=== PATIENT | male | born 1995 | race Two or more races ===

== ENCOUNTER 2018-08-05 20:43 | Emergency (ER) | payer OTHER ==
[~2018-08-05] VITALS: Ht 188 cm; Wt 86.2 kg
--- NOTE | 2018-08-05 22:11 | NUR ---
INTERMITTENT LT SIDED CP X2 WKS, WORSE WHEN LYING DOWN, W/ INTERMITTENT LT ARM PAIN. DESCRIBES MORE LIKE PRESSURE IN THE CHEST AND NUMBNESS/TINGLING IN THE ARM. "IT'S A WEIRD FEELING". DENIES INJURY OR RECENT EXACERABTION. DENIES SOB. HOOKED TO MONITOR. READY FOR EVAL.
--- NOTE | 2018-08-05 23:08 | NUR ---
Patient discharged to home in stable condition. Written and verbal after care instructions given. Patient verbalizes understanding of instruction.
[2018-08-05 23:09] VITALS: BP 127/76
== END 2018-08-05 23:10 | disposition home or self-care (01) ==
LOC: ER 20:51
DX: R07.89 Other chest pain (principal); F17.200 Nicotine dependence, unspecified, uncomplicated; F12.10 Cannabis abuse, uncomplicated; Z91.013 Allergy to seafood
CPT/HCPCS: 71045; 93005; 99283; A4606

== ENCOUNTER 2018-11-13 19:56 | Emergency (ER) ==
[~2018-11-13] VITALS: Ht 188 cm; Wt 86.2 kg
[2018-11-13 19:56] VITALS: BP 135/84
--- NOTE | 2018-11-13 20:48 | NUR ---
TO ER BED 7,NO APPARENT CHANGE IN CONDITION
== END 2018-11-13 21:22 | disposition home or self-care (01) ==
LOC: ER 19:58
DX: J02.9 Acute pharyngitis, unspecified (principal); I88.9 Nonspecific lymphadenitis, unspecified; F12.90 Cannabis use, unspecified, uncomplicated; Z91.013 Allergy to seafood

== ENCOUNTER 2019-03-04 14:21 | Inpatient (IN) | payer OTHER ==
[~2019-03-04] VITALS: Ht 188 cm; Wt 83.0 kg
--- NOTE | 2019-03-04 15:00 | NUR ---
PT PRESENTS TO ER C/O RLQ PAIN SINCE LAST NIGHT, NO APPETITE BUT NO NAUSEA AT THIS TIME. RESP EVEN UNLABORED. PT REPORTS PAIN IS SO INTENSE HE IS STRUGGLING TO SIT UPRIGHT. DENIES DYSURIA. DENIES N/V/D. IN ER BED 11.
[2019-03-04] MEDS ORDERED: ONDANSETRON HCL/PF 4 MG/2 ML VIAL IVP ONE (15:30)
[2019-03-04] MEDS ORDERED: MORPHINE SULFATE INJ 2 MG/ML DISP.SYRIN IV ONE (15:30)
[2019-03-04] MEDS ORDERED: IV NS 0.9% 1,000 ML BAG IV ONE (15:30)
[2019-03-04] MEDS ORDERED: ONDANSETRON HCL/PF 4 MG/2 ML VIAL ONE (15:39)
[2019-03-04] MEDS ORDERED: MORPHINE SULFATE INJ 4 MG/ML DISP.SYRIN ONE (15:40)
[2019-03-04 15:41] LABS: APPEARANCE,URINE Clear (CLEAR); BILIRUBIN,URINE Negative (NEGATIVE); BLOOD, URINE Negative Ery/uL (NEGATIVE); COLOR,URINE Yellow (YELLOW); KETONES,URINE Negative (NEGATIVE); LEUKOCYTE ESTERASE ,URINE Negative (NEGATIVE); NITRITE, URINE Negative (NEGATIVE); PH,URINE 7.5 (5.0-8.0); PROTEIN,URINE Negative (NEGATIVE); UGLUCOSE Negative (NEGATIVE); UROBILINOGEN,URINE 0.2 EU/dL (0.2)
--- NOTE | 2019-03-04 15:45 | NUR ---
PT UP TO RESTROOM WITH STEADY GAIT
--- NOTE | 2019-03-04 16:02 | NUR ---
CALLED DR LEROY FOR CONSULT. KALYAN RUTHERFORD SPOKE WITH
[2019-03-04 16:16] LABS: BASOPHILS % (AUTO) 0.2 % (0.0-2.0); EOSINOPHILS % (AUTO) 0.7 % (0.0-6.0); HEMATOCRIT 46 % (39-51); HEMOGLOBIN 15.2 g/dL (13.5-17.5); LYMPHOCYTES # (AUTO) 1.1 /CMM (0.8-4.8); LYMPHOCYTES % (AUTO) 12.4 % (20.0-44.0); MEAN CORPUSCULAR HGB CONC 33 g/dl (31.0-36.0); MEAN CORPUSCULAR VOLUME 93 fL (80-96); MONOCYTES # (AUTO) 0.8 /CMM (0.1-1.30); MONOCYTES % (AUTO) 8.4 % (2.0-12.0); NEUTROPHILS # (AUTO) 7.1 /CMM (1.8-8.9); NEUTROPHILS % (AUTO) 78.3 % (43.0-81.0); PLATELET COUNT (AUTO) 217 /CMM (150-450); RED BLOOD CELL COUNT(AUTO) 4.92 MIL/uL (4.5-6.0); WHITE BLOOD COUNT (AUTO) 9.1 K/uL (4.3-11.0)
[2019-03-04 16:23] LABS: CALCIUM, SERUM 9.8 mg/dL (8.5-10.1); POTASSIUM 4.1 mmol/L (3.5-5.1)
[2019-03-04 16:29] LABS: ALBUMIN 4.3 g/dL (3.4-5.0); BILIRUBIN,DIRECT 0.2 mg/dL (0.0-0.2); BILIRUBIN,TOTAL 0.8 mg/dL (0.2-1.0)
[2019-03-04] MEDS ORDERED: PIPERACILLIN /TAZOBACTAM 3.375 G in IV D5W 50 ML IV ONE (16:30)
[2019-03-04] MEDS ORDERED: HYDROMORPHONE 1 MG/1 ML DISP.SYRIN ONE (17:46)
--- NOTE | 2019-03-04 17:52 | NUR ---
PT C/O SEVERE PAIN, REPORTS THAT MORPHINE DID VERY LITTLE TO REDUCE PAIN, NOW BACK TO 10/10. MEDICATED PER VERBAL ORDER FROM MAIDA BIGGS.
--- NOTE | 2019-03-04 18:07 | NUR ---
BED ASSIGNED [id number]
--- NOTE | 2019-03-04 18:10 | NUR ---
REPORT GIVEN TO ANDRZEJ CHAVES FOR ADMISSION TO 307 AFTER SURGERY.
[2019-03-04] MEDS ORDERED: FENTANYL PF 250MCG/5ML AMPUL ONE (18:18)
[2019-03-04] MEDS ORDERED: MIDAZOLAM HCL 2 MG/2ML VIAL ONE (18:18)
[2019-03-04] MEDS ORDERED: FAMOTIDINE/PF INJ 20 MG/2 ML VIAL IV ONE (18:19)
[2019-03-04] MEDS ORDERED: ROCURONIUM BROMIDE 50 MG/5 ML ONE (18:19)
--- NOTE | 2019-03-04 18:40 | NUR ---
PT TRANSPORTED TO SURGERY IN STABLE CONDITION Addendum: 03/04/19 at 1844 by HFOX REPORT GIVEN TO ELISHA SURGERY RN
[2019-03-04] MEDS ORDERED: ANESTHESIA TRAY IN PYXIS 1 EA TRAY MC ONE (18:43)
[2019-03-04] MEDS ORDERED: HYDROMORPHONE 1 MG/1 ML DISP.SYRIN IV PRN (19:00)
[2019-03-04] MEDS ORDERED: BUPIVACAINE MPF W/EPI 0.25% 30 ML VIAL ONE (19:17)
[2019-03-04] MEDS ORDERED: LIDOCAINE HCL/PF 1% 30 ML SDV ONE (19:17)
--- NOTE | 2019-03-04 19:31 | NUR ---
REPORT GIVEN TO MACY RN FOR ADMISSION AFTER SURGERY.
--- NOTE | 2019-03-04 20:30 | NUR ---
MS WEIGHER BULKER NOTES RECEIVED FROM DAY SURGERY,REPORT GIVEN BY RN ELISHA,S/P LAP APPENDECTOMY BY DR LEROY.WITH THREE SMALL ABDOMINAL INCISION COVERED WITH DRESSING.ABDOMEN SOFT NO TENDER.NO SKIN ISSUES.ALERT,ORIENTED X4,ACCOMPANIED BY FAMILY MEMBERS.SALINE LOCK LEFT AC INTACT AND PATENT.VITAL SIGNS WITH IN NORMAL LIMITS.STARTED ON CLEAR LIQUIDS ORDERED.STARTED ON INCENTIVE SPIROMETRY WHILE FOR LUNG EXERCISE.MAY AMBULATE TOMORROW THREE X A DAY ORDERED WHEN TOLERATED.CALL LIGHT IN REACH,NEEDS ANTICIPATED.
[2019-03-04 20:45] VITALS: BP 114/77
[2019-03-04] MEDS ORDERED: ONDANSETRON HCL/PF 4 MG/2 ML VIAL IVP PRN (21:00)
[2019-03-04] MEDS ORDERED: HYDROCODONE/APAP 10/325MG 1 EA TABLET PO PRN (21:00)
[2019-03-04] MEDS: HYDROMORPHONE 1 MG/1 ML DISP.SYRIN IV PRN (22:14)
--- NOTE | 2019-03-04 22:14 | NUR ---
MS RN NOTES PAIN MANAGEMENT C/O ABDOMINAL PAIN 8/10 ON PAIN SCALE.MEDICATED WITH DILAUDID 0.5MG IV ORDERED.
[2019-03-05] MEDS: PIPERACILLIN /TAZOBACTAM 3.375 G in IV NS 0.9% 50 ML IV SCH ×2 (00:07→08:07)
[2019-03-05] MEDS: HYDROMORPHONE 1 MG/1 ML DISP.SYRIN IV PRN ×3 (03:08→13:19)
--- NOTE | 2019-03-05 06:29 | NUR ---
MS RN NOTES SLEPT WITH INTERVALS.PAIN MANAGEMENT EFFECTIVE.DRESSING ON SURGICAL INCISION SITE INTACT AND DRY.ENCOURAGED TO WALK TO HALLWAYS 3X TODAY.IN NO ACUTE DISTRESS.WILL ENDORSE TO DAY NURSE FOR [place].
[2019-03-05 07:04] LABS: BASOPHILS % (AUTO) 0.1 % (0.0-2.0); HEMATOCRIT 41 % (39-51); HEMOGLOBIN 13.7 g/dL (13.5-17.5); LYMPHOCYTES % (AUTO) 7.9 % (20.0-44.0); MEAN CORPUSCULAR HGB CONC 33 g/dl (31.0-36.0); MEAN CORPUSCULAR VOLUME 93 fL (80-96); MONOCYTES # (AUTO) 0.9 /CMM (0.1-1.30); NEUTROPHILS # (AUTO) 10.6 /CMM (1.8-8.9); PLATELET COUNT (AUTO) 209 /CMM (150-450); RED BLOOD CELL COUNT(AUTO) 4.46 MIL/uL (4.5-6.0); WHITE BLOOD COUNT (AUTO) 12.4 K/uL (4.3-11.0)
--- NOTE | 2019-03-05 07:23 | NUR ---
RN OPENING NOTE PT WAS RECEIVED WALKING IN HIS ROOM WITH HIS BED AT LOWEST AND LOCKED POSITION WITH SIDE RAILS UP X2, A/O X4 BREATHING EVEN AND UNLABORED ON RA, NO S/S OF ANY DISTRESS BUT DOES HAVE SOME PAIN AT THIS TIME, S/P LAP APPY, IV IS PATENT AND INTACT, SAFETY PRECAUTIONS IN PLACE, CALL LIGHT WITHIN REACH, WILL MONITOR PT ACCORDINGLY
[2019-03-05 07:30] VITALS: BP 134/79
[2019-03-05 07:34] LABS: CREATININE 1.2 mg/dL (0.6-1.3); POTASSIUM 4.4 mmol/L (3.5-5.1)
[2019-03-05 07:47] LABS: MAGNESIUM 1.7 mg/dL (1.8-2.4); PHOSPHORUS 4.3 mg/dL (2.5-4.9)
[2019-03-05] MEDS: Magnesium 1GM/D5W 100ML PREMIX 100 ML IV SCH ×2 (10:08→11:00)
--- NOTE | 2019-03-05 15:49 | NUR ---
DISCHARGE NOTE PT WAS D/C AT THIS TIME IN MEDICALLY STABLE CONDITION BACK HOME AT THIS TIME WITH HIS SISTER IN THEIR PRIVATE CAR. IV AND ID BAND WERE REMOVED. ALL EXITCARE, D/C PAPERWORK, AND BELONGINGS LIST WERE SIGNED, DISCUSSED AND HANDED TO THE PATIENT. ALL BELONGINGS WERE TAKEN BY THE PATIENT AT THIS TIME. SKIN WAS NOTED TO BE DRY AND INTACT JUST HAD 3 DRESSING FROM THE SURGERY. ALL NEEDS WERE ATTENDED TO DURING HIS STAY. PT WAS WALKED DOWN BY ME AND LEFT AT THIS TIME
[2019-03-05 16:00] VITALS: BP 122/72
== END 2019-03-05 15:45 | disposition home or self-care (01) | DRG 234 ==
LOC: ER 14:24 → MED 18:12
PROVIDERS: ADMIT Nurse Practitioner Acute Care; ATTEND Nurse Practitioner Acute Care
PROC: 0DTJ4ZZ Resection of Appendix, Percutaneous Endoscopic Approach (ICD-10-PCS; principal; 2019-03-04)
DX: K35.80 Unspecified acute appendicitis (principal); K40.90 Unilateral inguinal hernia, without obstruction or gangrene, not specified as recurrent; Z91.013 Allergy to seafood
CPT/HCPCS: 36415; 71045-TC; 80048-TC; 80076-TC; 81000-TC; 83735-TC; 84100-TC; 85025-TC; 85730-TC; 87081-TC; A4216; G0378; J0690; J1100; J1170; J1885; J2250; J2270; J2405; J2543; J2704; J2710; J3010; J3475; J3490; J7030; J7060